=== PATIENT | female | born 1940 | race Caucasian/White ===

== ENCOUNTER → 2016-11-17 | Outpatient (CLI) | payer MEDICARE, OTHER ==
[~2016-11-17] MED LIST: ACETAMINOPHEN PO; ALDACTONE PO; ARICEPT PO; ASPIRIN PO; ASPIRIN81 M2 PO; B COMPLEX/FOLIC1 TAB PO; BYSTOLIC PO; CALCIUM 600 +1 EAC1 PO; DIAZEPAM PO; ESTER C; ESTER C PO; ESTRATEST TABLE1 TAB PO; HYDROCODON-ACE1 EAC7 PO; HYDROCORTISONE10 M1 PO; LASIX PO; LOVAZA1 G PO; MIRALAX17 GM DOB; NEURONTIN100 MG PO; NEXIUM PO; NUVIGIL250 MG PO; PERCOCET7.5 PO; PROPRANOLOL PO; ROBAXIN500 MG PO; SINGULAIR PO; SYNTHROID PO; SYNTHROID125 PO; TETRACYCLINE PO; VALTREX PO; VIT B-12 PO; VITAMIN B122500 MC1 PO; VITAMIN D 4001 UDTAB PO; VITAMIN D50000 UNIT PO; WELLBUTRIN SR PO; ZOCOR PO; ZOFRAN PO; ZOLOFT PO
--- NOTE | ~2016-11-17 | CT2 ---
[facility] A Service of [facility] & [facility] RADIOLOGY TEXT RESULTS PATIENT: GISELLA SOTO LOCATION: [facility] : 40 UNIT #: [id number] AGE: [address]: Shikha Anderson MD SEX: F ORDER DR: [id number] [facility] [address] [place], [place] [address] [id number] O MR#: [id number] Acc #: [id number] NAME: GISELLA SOTO : 1940 SEX: F STUDY DATE/TIME: 11/17/2016 16:13 UNIT: [facility] ROOM: STUDY DESCRIPTION: CT Abd and Pelv W Cont Attending Physician: Shikha Anderson M.D., Ph.D. Ordering Physician: Shikha Anderson M.D., Ph.D. Primary Care Physician: Adebayo Arellano M.D. MEDICAL IMAGING REPORT This report is preliminary unless electronic signature is present EXAM CT abdomen and pelvis with IV contrast. DATE 11/17/2016 HISTORY Right upper quadrant abdominal pain for 5 days. History of biliary stricture. Additional history of thyroid cancer and pancreatic cancer. COMPARISON ERCP 10/25/2016. PET/CT 09/29/2016. CT abdomen and pelvis with contrast 10/24/2016. PROCEDURE 5 mm axial images from the lung bases through the lesser trochanters after intravenous contrast administration. Enteric contrast was not administered. Sagittal and coronal reformatted images were obtained. This CT exam was performed with one or more of the following radiation dose reduction techniques: automatic exposure control, adjustment of mA and/or kV according to patient size, and iterative reconstruction. FINDINGS ABDOMEN FINDINGS: Two indwelling CBD stents are in place, one extends to the right and another extending to the left intrahepatic bile ducts. There is persistent abnormal intrahepatic biliary ductal dilation, particularly in the left hepatic lobe where a dominant duct measures nearly 8 mm, slightly increased from the 10/24/2006 study where it measured up to 5 mm. Ill-defined region of low density soft tissue thickening is seen in the radha hepatis or biliary hilum measuring up to 2.4 cm, may represent a site of malignant involvement. This region had hypermetabolic STS. [facility] A Service of [facility] & [facility] RADIOLOGY TEXT RESULTS PATIENT: GISELLA SOTO [facility] : 40 UNIT #: [id number] AGE: [address]: Shikha Anderson MD SEX: F ORDER DR: activity on previous PET/CT, although no discrete mass lesion could be seen, but is most worrisome for either metastatic disease or potential cholangiocarcinoma. There is persistent abnormal gallbladder wall thickening and stranding, and underlying cholecystitis not excluded. Gallstones are present. Heterogeneous enhancement pattern throughout the liver parenchyma, thought to be related to biliary obstruction and altered perfusion dynamics. Small right pleural effusion layers to a depth of 2 cm, with posterior right lower lobe atelectasis, both of which appear increased compared to 10/24/2016. Trace left pleural effusion and mild left basilar atelectasis have developed. Mitral valve replacement changes are present. Spleen is upper limits normal size, 13.8 cm without focal lesion. Low-density mass lesion in the pancreatic tail and upstream body measures nearly 5.6 cm x 3.9 cm, stable to minimally larger than on the previous study. Splenic vein remains thrombosed. Irregular coarse calcification is seen within the splenic artery, thought most likely to be thrombosed, unchanged from prior. The adrenals are normal. Small bilateral renal angiomyolipomas, unchanged. Left lower renal pole cyst, unchanged. Mass lesion within the left abdominal mesentery on today's exam measures 2.7 cm x 3.3 cm, and demonstrates enlargement since 10/24/2016 where it measured 2.4 cm x 3.0 cm. Diverticular changes are scattered throughout the colon. [id number] colonic stool burden is present. PELVIS FINDINGS: Persistent abnormal segmental thickening of the mid sigmoid colon thought to represent changes of sigmoid diverticulitis, similar to 10/24/2016. Underlying colonic mass lesion cannot be completely excluded. Trace pelvic free fluid to the right of midline. No discrete drainable fluid collection or abscess or free air is seen. Urinary bladder is normal. Presumed hysterectomy. No acute or suspicious osseous lesions are identified. IMPRESSION 1. Multiple abnormal findings. Please refer to the report for detailed description. 2. The patient's known pancreatic tail mass is stable to very slightly larger than on the 10/24/2016 examination. 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 3. Ill-defined low-density thickening in the biliary confluence or radha hepatis in the right upper quadrant may represent metastatic disease or cholangiocarcinoma, similar to the prior 10/24/2016 examination. [facility]. [facility] A Service of [facility] RADIOLOGY TEXT RESULTS PATIENT: GISELLA SOTO [facility] UNIT #: [id number] AGE: [address]: Shikha Anderson MD SEX: F ORDER DR: Intrahepatic biliary ductal dilation appears slightly increased since 10/24/2016 despite placement of two intrahepatic biliary stents. 4. The metastatic lesion within the left mid abdominal mesentery is slightly larger. 5. Segmental sigmoid colonic thickening or diverticular changes are present, thought to represent changes of acute sigmoid diverticulitis, very similar to prior examination. Underlying colonic mass lesion cannot be completely excluded at this location. If there is persistent clinical concern, consider correlation with colonoscopy. No drainable fluid collection or abscess is seen. 6. Small right pleural effusion and right basilar atelectasis has increased since 10/24/2016, new trace left pleural effusion and mild medial basilar atelectasis has developed. 7. The gallbladder wall remains abnormally thickened, and has been described on multiple prior studies. Underlying cholecystitis not excluded. Cholelithiasis. 8. Mitral valve replacement. Presumed hysterectomy. Dictated by... Yoli Gimenez M.D. THIS IS AN ELECTRONICALLY VERIFIED REPORT Yoli Gimenez M.D. at 11/18/2016 11:57 AM CRISS/suzan TD: 11/18/2016 02:45 JOB #: [id number] MEDICAL IMAGING REPORT COPY
[2016-11-17 16:13] LABS: POC - CREATININE 0.75 mg/dL (0.44-1.03); POC - GFR >60.0 mL/min (>60)
== END | disposition home or self-care (01) ==
LOC: CCAT 14:39
PROVIDERS: Internal Medicine Hematology & Oncology
DX: D44.0 Neoplasm of uncertain behavior of thyroid gland (principal); D80.1 Nonfamilial hypogammaglobulinemia; I82.891 Chronic embolism and thrombosis of other specified veins; J90 Pleural effusion, not elsewhere classified; J98.11 Atelectasis; K82.8 Other specified diseases of gallbladder; K86.89 Other specified diseases of pancreas; Z95.2 Presence of prosthetic heart valve; Z92.25 Personal history of immunosuppression therapy; Z92.21 Personal history of antineoplastic chemotherapy
CPT/HCPCS: 74177; 82565; Q9967

== ENCOUNTER → 2016-12-16 | Outpatient (CLI) | payer MEDICARE, OTHER ==
--- NOTE | ~2016-12-16 | XA166 ---
[facility] A Service of [facility] RADIOLOGY TEXT RESULTS PATIENT: GISELLA SOTO LOCATION: [facility] : 40 UNIT #: [id number] AGE: [address]: Shikha Anderson MD SEX: F ORDER DR: [id number] [facility] [address] [place], [place] [address] [id number] O MR#: [id number] Acc #: [id number] NAME: GISELLA SOTO : 1940 SEX: F STUDY DATE/TIME: 12/16/2016 13:02 UNIT: [facility] ROOM: STUDY DESCRIPTION: XA PICC Line Placement WO Port Attending Physician: Shikha Anderson M.D., Ph.D. Referring Physician: Shikha Anderson M.D., Ph.D. Ordering Physician: Shikha Anderson M.D., Ph.D. Primary Care Physician: Adebayo Arellano M.D. MEDICAL IMAGING REPORT This report is preliminary unless electronic signature is present EXAM PICC line placement INDICATION IV access PRE-PROCEDURE The procedure was explained to the patient and/or patient insurance follow up representative including risks, benefits, potential complications and potential for alternative forms of treatment. Informed consent was obtained, and prior to initiating the procedure a formal timeout procedure was performed. PROCEDURE Using full standard sterile barrier technique, including caps, gowns, gloves, masks, as well as sterile skin preparation and standard sterile draping, the right arm was prepped and draped in the usual fashion, and real-time sterile ultrasound guidance was used to localize a right arm basilic vein and to confirm vessel patency. A hard copy ultrasound image was recorded. After local anesthesia with 1% Xylocaine, the vein was punctured using real-time sterile ultrasound guidance, and an 0.018 guidewire was advanced into the superior vena cava, using fluoroscopic guidance. A 4 Green[place] single-lumen 39 cm PICC line was then measured and deployed with the tip positioned in the superior vena cava. The position of the line was documented with a radiographic image. The line was secured in place with an adhesive dressing and an antibiotic patch was applied. Total fluoro time was 0.1 minutes. The reference air kerma is 1 mGy. IMPRESSION Successful right arm PICC line placement. [facility] A Service of [facility] RADIOLOGY TEXT RESULTS PATIENT: GISELLA SOTO LOCATION: [facility] : 40 UNIT #: [id number] AGE: [address]: Shikha Anderson MD SEX: F ORDER DR: Dictated by... Yakov Malhotra M.D. THIS IS AN ELECTRONICALLY VERIFIED REPORT Yakov Malhotra M.D. at 12/17/2016 2:34 PM YADIEL/rnr TD: 12/16/2016 19:22 JOB #: [id number] MEDICAL IMAGING REPORT Page 1 of 1 COPY
== END | disposition home or self-care (01) ==
LOC: CIVR 12:40
PROC: 02HV33Z Insertion of Infusion Device into Superior Vena Cava, Percutaneous Approach (ICD-10-PCS; principal; 2016-12-16)
DX: Z45.2 Encounter for adjustment and management of vascular access device (principal); C25.2 Malignant neoplasm of tail of pancreas; D44.0 Neoplasm of uncertain behavior of thyroid gland; D80.1 Nonfamilial hypogammaglobulinemia; Z92.25 Personal history of immunosuppression therapy; Z92.21 Personal history of antineoplastic chemotherapy; K83.0 Cholangitis; Z98.890 Other specified postprocedural states; Z87.440 Personal history of urinary (tract) infections
CPT/HCPCS: 76937; 77001; C1751; J1642